=== PATIENT | male | born 1995 | race Caucasian/White ===

== ENCOUNTER 2022-06-17 09:24 | Emergency (ER) | payer OTHER, BC ==
[2022-06-17] MEDS ORDERED: Lidocaine 1% PF 5 ML VIAL ONE (10:37)
[2022-06-17] MEDS ORDERED: Boostrix 0.5 ML (Tdap) VIAL (>/=7 yrs of age) ONE (10:57)
== END 2022-06-17 11:28 | disposition home or self-care (01) ==
LOC: ERS 09:24
DX: S01.511A Laceration without foreign body of lip, initial encounter (principal); S80.811A Abrasion, right lower leg, initial encounter; S40.812A Abrasion of left upper arm, initial encounter; S40.811A Abrasion of right upper arm, initial encounter; V19.3XXA Pedal cyclist (driver) (passenger) injured in unspecified nontraffic accident, initial encounter
CPT/HCPCS: 40650; 90471; 90715